=== PATIENT | female | born 1990 | race Two or more races ===

== ENCOUNTER 2019-12-27 12:34 | Day surgery (SDC) | payer BC ==
[~2019-12-27] VITALS: Ht 157.5 cm; Wt 59.0 kg
--- NOTE | 2019-12-27 10:50 | Anethesia Preoperative Eval ---
Anesthesia Pre-op PMH/ROS General Date of Evaluation: Dec 27, 2019 Anesthesiologist: Nahid ASA Score: ASA 2 Mallampati Score Class I : Soft palate, uvula, fauces, pillars visible Class II: Soft palate, uvula, fauces visible Class III: Soft palate, base of uvula visible Class IV: Only hard plate visible Mallampati Classification: Class II Surgeon: Huber Diagnosis: Colitis Surgical Procedure: Colonoscopy Anesthesia History: none Family History: no anesthesia problems Allergies: Coded Allergies: No Known Allergies (Unverified , 12/27/19) Medications: see eMAR Patient NPO?: Yes NPO Date: Dec 27, 2019 NPO Time: 00:00 Past Medical History Cardiovascular: Denies: HTN, CAD, [place], valve dz, arrhythmia, other Pulmonary: Reports: asthma; Denies: COPD, BIANCA, other Gastrointestinal/Genitourinary: Reports: other - colitis; Denies: GERD, CRI, ESRD Neurologic/Psychiatric: Denies: dementia, CVA, depression/anxiety, TIA, other Endocrine: Denies: DM, hypothyroidism, steroids, other HEENT: Denies: cataract (L), cataract (R), glaucoma, [place] (L), [place] (R), other Hematology/Immune: Denies: anemia, DVT, bleeding disorder, other Musculoskeletal/Integumentary: Denies: OA, RA, DJD, DDD, edema, other PSxH Narrative: T&A Anesthesia Pre-op Phys. Exam Physician Exam see chart Constitutional: NAD Cardiovascular: RRR Respiratory: CTA Airway Exam Mallampati Score: Class II MO: full ROM: full Teeth: intact Anesthesia Pre-op A/P Labs see chart Risk Assessment & Plan Assessment: ASA II Plan: MAC Status Change Before Surgery: No Pre-Antibiotics Drug: N/A Sharron Whitfield MD Dec 27, 2019 10:50
[2019-12-27] MEDS ORDERED: Lidocaine 1% MPF 10mg/ml 5ml ONE (12:35)
[2019-12-27] MEDS ORDERED: LOESTRIN FE 1.1 EACH PO (13:34)
[2019-12-27] MEDS ORDERED: OMEPRAZOLE20 M3 ORAL (13:34)
[2019-12-27] MEDS ORDERED: PROAIR HFA8.5 GM INH (13:34)
--- NOTE | 2019-12-27 14:25 | Short Stay Surgery H&P ---
History of Present Illness History of Present Illness Chief Complaint see attached HPI Pili Waggoner is a 29 year old female who was admitted on for Colitis Patient History Allergies: Coded Allergies: No Known Allergies (Unverified , 12/27/19) Medication History Scheduled Albuterol Sulfate* (Proair Hfa*), 1 PUFF INH PRN, (Reported) Noreth A-Et Estra/Fe Fumarate (Loestrin Fe 1.5-30 Tablet), 1 EACH PO DAILY, ( Reported) Omeprazole (Omeprazole), Unknown Dose ORAL DAILY, (Reported) Physical Exam Vital Signs Last Vital Signs Date Time Temp Pulse Resp B/P (MAP) Pulse Ox O2 Delivery O2 Flow Rate FiO2 12/27/19 13:27 Room Air 12/27/19 13:27 97.8 71 18 96 Labs Laboratory Tests Test 12/27/19 13:00 Urine HCG, Qualitative Pending Plan Attestation Are the patient's medical conditions optimized for surgery? Zahira Ngo MD Dec 27, 2019 14:25
--- NOTE | 2019-12-27 14:26 | Pre-Procedure Note/Attestation ---
Pre-Procedure Note/Attestation Complete Prior to Procedure Planned Procedure: not applicable Procedure Narrative: colon Indications for Procedure Pre-Operative Diagnosis: abd pain diarrhea Attestation I attest that I discussed the nature of the procedure; its benefits; risks and complications; and alternatives (and the risks and benefits of such alternatives ), prior to the procedure, with the patient (or the patient's legal airline security representative). I attest that, if there was a reasonable possibility of needing a blood transfusion, the patient (or the patient's legal airline security representative) was given the [facility] standardized written summary, pursuant to the Louie Amara Blood Safety Act ([place] Health and Safety Code # 1645, as amended). I attest that I re-evaluated the patient just prior to the surgery and that there has been no change in the patient's H&P, except as documented below: Zahira Ngo MD Dec 27, 2019 14:26
[2019-12-27] MEDS ORDERED: LR 1000ml 1,000 ML IVLG SCH (14:35)
[2019-12-27] MEDS ORDERED: DiphenhydrAMINE 50mg/ml Inj IVP PRN (14:45)
--- NOTE | 2019-12-27 15:29 | Endoscopy Procedure Note ---
Endoscopy Procedure Note General Indication for Procedure: abd pain diarrhea Procedures Performed: colonoscopy Operative Findings/Diagnosis: patchy distal descending and sigmoid erythema Specimen: yes Pt Tolerated Procedure Well: Yes Estimated Blood Loss: none Anesthesia Anesthesiologist: Uli Anesthesia: moderate sedation Medications Medication Given: see anesthesia record Inserted Devices Implant(s) used?: No GI Core Measures 50 yrs or older w/o bx or poly: Not Applicable 10yrs. F/U recommended: Not Applicable Zahira Ngo MD Dec 27, 2019 15:29
[2019-12-27 15:30] VITALS: BP 125/82
--- NOTE | 2019-12-27 15:30 | Brief Operative Note ---
Immediate Post Operative Note Operative Note Chief Complaint: abd pain diarrhea Pre-op Diagnosis: abd pain diarrhea Procedure: colon Post-op Diagnosis: patchy (L) sided colitis Surgeon: alton Anesthesiologist: Uli Anesthesia: MAC Specimen: yes Complications: none Condition: stable Fluids: per anesthesia Estimated Blood Loss: none Drains: none Implant(s) used?: No Zahira Ngo MD Dec 27, 2019 15:30
--- NOTE | 2019-12-27 15:34 | Immediate Post-Op Evaluation ---
Immediate Post-Op Evalulation Immediate Post-Op Evalulation Procedure: Colonoscopy Date of Evaluation: Dec 27, 2019 Time of Evaluation: 15:35 IV Fluids: 250 Blood Products: 0 Estimated Blood Loss: 0 Urinary Output: 0 Blood Pressure Systolic: 125 Blood Pressure Diastolic: 82 Pulse Rate: 76 Respiratory Rate: 16 O2 Sat by Pulse Oximetry: 100 Temperature (Fahrenheit): 97 Pain Score (1-10): 0 Nausea: No Vomiting: No Complications 0 Patient Status: awake, reacts, patent, none Hydration Status: adequate Drug: N/A Sharron Whitfield MD Dec 27, 2019 15:34
[2019-12-27 15:35] VITALS: BP 129/81
--- NOTE | 2019-12-27 15:35 | 48 Hour Post Anesthesia Eval ---
Post Anesthesia Evaluation Procedure: Colonoscopy Date of Evaluation: Dec 27, 2019 Airway: patent Nausea: No Vomiting: No Pain Intensity: 0 Hydration Status: adequate Cardiopulmonary Status: at baseline Mental Status/LOC: patient returned to baseline Post-Anesthesia Complications: 0 Follow-up care needed: ready to discharge Sharron Whitfield MD Dec 27, 2019 15:35
[2019-12-27 15:40] VITALS: BP 125/79
[2019-12-27 15:50] VITALS: BP 128/85
[2019-12-27 16:05] VITALS: BP 122/75
--- NOTE | 2020-01-01 12:14 | Operative Note - Dictated ---
DATE OF OPERATION: 12/27/2019 GASTROENTEROLOGY PROCEDURE REPORT PROCEDURE: Colonoscopy with biopsy. SURGEON: Zahira Ngo MD. ANESTHESIA: Please see the separate anesthesiologist notes for details. PRE-ENDOSCOPIC DIAGNOSES: Abdominal pain and diarrhea. POST-ENDOSCOPIC DIAGNOSIS: Patchy erythema in the distal descending colon as well as sigmoid colon, status post random biopsies as described below. DESCRIPTION OF PROCEDURE: The procedure its risks, indications, alternatives, and possible complications including but not limited to bleeding, infection, perforation, , and anesthesia complications were explained to the patient and an informed consent was obtained. The patient was then sedated in the left lateral decubitus position and a rectal exam was done. A colonoscope was then introduced into the rectum and advanced for approximately 10 cm into the terminal ileum. The colonoscope was then gradually withdrawn and mucosa examined carefully. Examination of the terminal ileum mucosa did not reveal any abnormalities. The colonic mucosa were normal in the right colon, but in the distal descending colon and the sigmoid colon, there was patchy erythema seen, but were without evidence of ulceration. Random biopsies of the terminal ileum, right sigmoid colon and rectum were sent to pathology for review. The retroflexed view of the rectum was unremarkable. The colonoscope was removed and the patient was sent to recovery in good condition. COMPLICATIONS: None. RECOMMENDATIONS: 1. Follow up biopsy results. 2. Outpatient followup. Zahira Ngo M.D. DR: МАРИЯ JOB#: [id number] CC: Zahira Ngo MD.; Fax#: [phone]
== END 2019-12-27 16:20 | disposition home or self-care (01) ==
LOC: GAS 12:34
DX: R10.9 Unspecified abdominal pain (principal); R19.7 Diarrhea, unspecified
CPT/HCPCS: 45380; 81025; 94003; J2704; J7030; U0002; 94150